=== PATIENT | male | born 2000 | race Caucasian/White ===

== ENCOUNTER 2021-08-09 06:18 | Emergency (ER) | payer OTHER ==
[~2021-08-09] VITALS: Ht 157.5 cm; Wt 63.5 kg
--- NOTE | 2021-08-09 06:55 | NUR ---
BIBS TO ER BED 6. AAOX4. NOT IN RESP DISTRESS, BRETHING EVEN AND UNLABORED. AMBULATORY. CAME IN FOR FLU SYMPTOMS SINCE YESTERDAY. PT REPORTS HEADACHE, SORETHROAT, BLOOD IN SPUTUM AND BODYACHE. MD IS AT BEDSIDE FOR EVAL. ORDERS RECEIVED, NOTED AND CARRIED OUT.
[2021-08-09] MEDS ORDERED: ACETAMINOPHEN ES 500 MG TABLET PO ONE (07:00)
[2021-08-09] MEDS ORDERED: IBUPROFEN 600 MG TABLET ONE (07:00)
[2021-08-09] MEDS ORDERED: IBUPROFEN 600 MG TABLET PO ONE (07:00)
[2021-08-09] MEDS ORDERED: ACETAMINOPHEN ES 500 MG TABLET ONE (07:00)
--- NOTE | 2021-08-09 07:01 | NUR ---
COVID SWAB DONE AND SENT TO LAB
[2021-08-09] MEDS ORDERED: IBUP-1957 PO (07:02)
--- NOTE | 2021-08-09 08:54 | NUR ---
Patient discharged to home in stable condition. Written and verbal after care instructions given. Patient verbalizes understanding of instruction.
[2021-08-09 08:55] VITALS: BP 141/68
== END 2021-08-09 08:56 | disposition home or self-care (01) ==
LOC: ER 06:18
DX: J06.9 Acute upper respiratory infection, unspecified (principal); Z20.822 Contact with and (suspected) exposure to COVID-19; R03.0 Elevated blood-pressure reading, without diagnosis of hypertension
CPT/HCPCS: 87426; 99283; C9803

== ENCOUNTER 2024-02-10 08:44 | Emergency (ER) | payer OTHER ==
[~2024-02-10] VITALS: Ht 160 cm; Wt 68.0 kg
[~2024-02-10 08:44] MED LIST: IBUP-1957 PO
[2024-02-10 08:49] VITALS: BP 140/82; TEMP 97.9
[2024-02-10] MEDS ORDERED: LIDOCAINE 1% INJ 50 ML MDV IJ ONE (09:59)
[2024-02-10] MEDS ORDERED: CEFTRIAXONE 500 MG VIAL ONE (09:59)
[2024-02-10] MEDS: CEFTRIAXONE 500 MG VIAL IM ONE (10:02)
[2024-02-10] MEDS ORDERED: MUPI22OI2 TP (10:35)
[2024-02-10] MEDS ORDERED: DOXY100T2 PO (10:35)
[2024-02-10 11:01] VITALS: O2SAT 100
[2024-02-11 12:57] LABS: HIV-1 p24 ANTIGEN NON REACTIVE (NONREACTIVE); HIV-1/2 ANTIBODY NON REACTIVE (NONREACTIVE)
[2024-02-12 03:07] LABS: RAPID PLASMA REAGIN QUAL. Non Reactive (Non Reactive)
== END 2024-02-10 11:03 | disposition home or self-care (01) ==
LOC: ER 08:44
DX: B08.1 Molluscum contagiosum (principal); F12.10 Cannabis abuse, uncomplicated
CPT/HCPCS: 99283; 96372; 87806; J3490; J0696; 36415; 86592; 86593